=== PATIENT | female | born 1960 | race Caucasian/White ===

== ENCOUNTER → 2019-03-18 | Outpatient (CLI) | payer BC ==
[~2019-03-18] MED LIST: ATEN50TA2 PO; CETI10CH PO; EZET10TA21 PO; FURO40TA2 PO; JANU100T PO; LIDOCAINE 1% MDV 20ML VIAL As Ordered ONE; LISI40TA PO; METF10004 PO
[2019-03-18 11:00] VITALS: BP 106/62
--- NOTE | 2019-03-18 17:07 | REP ---
ULTRASOUND-GUIDED LIVER BIOPSY The procedure was performed under the direct supervision of Dr. Guerra. The risks and benefits of the procedure were explained to the patient and informed consent was obtained. The left lobe of the liver was localized using ultrasound guidance. During preliminary sonography of the left lobe of the liver there is a 1.1 ml by one by 0.6 cm hypoechoic nodule. This nodule was included in the biopsy sample. Using ultrasound guidance a 19/20 gauge coaxial needle biopsy system was inserted and advanced into the liver. Five core biopsy samples were obtained and sent to the lab for analysis. The nodule seen on a preliminary sonography was included in the biopsy sample. The patient tolerated the procedure well and there were no immediate complications. After the appropriate amount of monitored convalescence the patient was discharged from the department. Electronically Signed by MARY Montoya 03/18/2019 03:06 P Electronically Signed by Sean Guerra MD 03/18/2019 04:58 P
== END ==
LOC: M IRPRO 03-06 08:32
PROVIDERS: ATTEND Internal Medicine Gastroenterology
DX: K76.89 Other specified diseases of liver (principal); R93.89 Abnormal findings on diagnostic imaging of other specified body structures; Z79.84 Long term (current) use of oral hypoglycemic drugs; Z79.899 Other long term (current) drug therapy